=== PATIENT | female | born 1985 ===

== ENCOUNTER 2024-04-26 19:47 | Emergency (ER) | payer OTHER, SELFPAY ==
[2024-04-26] VITALS (10 sets, daily range): BP systolic 115–142; BP diastolic 68–86; PULSE 56–80; RESP 12–20; TEMP 37.2; O2SAT 96–100; BMI 24.3
[2024-04-26] MEDS: methylPREDNISolone 125 MG/2 ML VIAL IV (20:57)
[2024-04-26] MEDS: diphenhydrAMINE 50 MG/ML VIAL 25 MG IV (20:57)
--- NOTE | 2024-04-26 23:39 | ED_ITS ---
HPI - Skin/Abscess/Foreign Bdy General Chief complaint: Abdominal Pain Stated complaint: Reaction to medication/skin rash Time Seen by Provider: 04/26/24 20:31 Source: patient Mode of arrival: Ambulatory Limitations: no limitations History of Present Illness HPI narrative: Patient is a 39-year-old female without significant past medical history presenting today with rash pruritus abdominal pain some nausea. She was seen evaluated at urgent care yesterday for allergic reaction. She reports that she would significant hives all over her body no difficulty breathing tongue swelling or lip swollen yesterday or today. She was started on prednisone Pepcid and Benadryl however she says it was not quite working today. She is scheduled to see a family day carer at the end of the month. She reports that she had a similar episode in February was initially thought due to heat however it has not reoccurred until now. She denies any other irritants or anything new. My time of questioning and evaluation she has received Solu-Medrol and 25 of Benadryl and reports feeling significantly better although she feels like the Benadryl is wearing off and she has getting a little bit itchy again. Related Data Allergies Allergy/AdvReac Type Severity Reaction Status Date / Time No Known Drug Allergies Allergy Verified 04/26/24 19:55 Patient History Social History Smoking Status: Current some day smoker Smoking Status: Current some day smoker tobacco type: cigarettes alcohol intake frequency: 0-2 drinks per day Substance Use Type: does not use Exam Initial Vital Signs Initial Vital Signs: Vital Signs Temperature 99.0 F 04/26/24 19:49 Pulse Rate 70 04/26/24 19:49 Respiratory Rate 18 04/26/24 19:49 Blood Pressure 142/79 H 04/26/24 19:49 Pulse Oximetry 100 04/26/24 19:49 Oxygen Delivery Method Room Air 04/26/24 19:49 GENERAL: Alert pleasant 39-year-old female and in [no acute] distress. HEENT: Head atraumatic,EOMI, pupils reactive, face symmetric, [moist] mucous membranes CARDIOVASCULAR: Regular rate and rhythm without murmurs, rubs or gallops. RESPIRATORY: Breath sounds equal bilaterally, no wheezes rales or rhonchi. ABDOMEN: Soft, nontender. Normoactive bowel sounds all 4 quadrants. No guarding or rebound. EXTREMITIES: Normal range of motion, no clubbing or edema. Neurovascularly intact NEUROLOGICAL: Alert and oriented x4. SKIN: Urticaria and hives noted on Course Orders Ordered: Discontinued Medications Diphenhydramine HCl (Diphenhydramine 50 Mg/Ml Vial) 25 mg IV NOW ONE Stop: 04/26/24 20:32 Last Admin: 04/26/24 20:57 Dose: 25 mg Documented By: Diphenhydramine HCl (Diphenhydramine 50 Mg/Ml Vial) 50 mg IV NOW ONE Stop: 04/26/24 23:40 Last Admin: 04/27/24 00:16 Dose: 50 mg Documented By: AB Famotidine (Famotidine 20 Mg/2 Ml Vial) 20 mg IV NOW SERG Last Admin: 04/27/24 00:20 Dose: 20 mg Documented By: AB Methylprednisolone (Methylprednisolone 125 Mg/2 Ml Vial) 125 mg IV NOW ONE Stop: 04/26/24 20:32 Last Admin: 04/26/24 20:57 Dose: 125 mg Documented By: Vital Signs Vital signs: Vital Signs - 8 hr 04/26/24 22:00 04/26/24 22:00 04/26/24 22:30 Pulse Rate 62 Respiratory Rate 20 Blood Pressure 120/77 115/68 Pulse Oximetry 97 04/26/24 22:30 04/26/24 23:00 04/26/24 23:00 Pulse Rate 56 L 57 L Respiratory Rate 16 17 Blood Pressure 119/71 Pulse Oximetry 97 96 04/26/24 23:30 04/26/24 23:30 04/27/24 00:00 Pulse Rate 62 63 Respiratory Rate 17 21 Blood Pressure 130/79 Pulse Oximetry 98 96 MDM - Skin/Abscess/Foreign Bdy MDM Narrative Medical decision making narrative: Patient is a 39-year-old female presenting today with allergic reaction urticaria and abdominal pain with nausea. No evidence of anaphylaxis or airway compromise. Unknown irritant or allergen. He did improve with medication yesterday and she is improving with some Solu-Medrol Benadryl but is coming back a little bit. Recommended allergy testing to her. It sounds like she is taking Pepcid prednisone and Benadryl. She was scheduled to see a family day carer . At this time she is feeling a lot better she has outpatient follow-up with dermatology. I see no need for epinephrine at this time. She still has some minor hives and urticaria on her back but overall improved Discharge Plan Departure Patient Disposition: Home Clinical Impression: Urticaria Instructions: DI for Angioedema, DI for Hives Activity Restrictions/Additional Instructions: *You have been diagnosed with urticaria allergic reaction *What to do: At this time I strongly recommend you have allergy testing. You may require a longer taper of prednisone if your symptoms continue *Continue to take medications as directed Benadryl 25-50 mg every 6 hours if needed for itching May take [id number] Claritin, Marii, Zyrtec Continue Pepcid Continue prednisone *Follow up with your primary care provider in 2-3 days or call [phone] *Return to ER if you should have increased difficulty breathing worsening rash or any new, worsening or concerning symptoms Stand Alone Forms: Patient Portal/API
[2024-04-27] VITALS: PULSE 63; RESP 21; O2SAT 96
[2024-04-27] MEDS: diphenhydrAMINE 50 MG/ML VIAL IV (00:16)
[2024-04-27] MEDS: FAMOTIDINE 20 MG/2 ML VIAL IV (00:20)
== END 2024-04-27 00:27 | disposition home or self-care (01) ==
PROVIDERS: Emergency Provider Emergency Medicine
DX: L50.9 Urticaria, unspecified (principal); R11.0 Nausea
CPT/HCPCS: 36415; 96374; 96375; 96376; 99284; J1200; J2919